=== PATIENT | male | born 1985 | race American Indian/Alaskan Native ===

== ENCOUNTER 2017-04-19 17:07 | Emergency (ER) | payer BC ==
[2017-04-19 19:10] VITALS: BP 121/65
[2017-04-19] MEDS ORDERED: ANCEF IM ONE (20:18)
--- NOTE | 2017-04-19 20:35 | Emergency Department Report ---
ED Laceration HPI - HPI Chief Complaint: Wound/Laceration Stated Complaint: RIGHT HAND FINGER LACERATION Occurred When: Today Severity: mild Tetanus Status: Up to Date Laceration Symptoms: Yes Pain, No Foreign Body Sensation, No Numbness, No Weakness Other History: 31 year old male presents to ED with right 4th digit laceration/ distal amputation @8. patient states he cut his finger on sharp bottle top/cap. patient is stable, neurologically intact and in no acute distress. patient states he had tetanus shot this year. ED Review of Systems ROS: Stated complaint: RIGHT HAND FINGER LACERATION Other details as noted in HPI Constitutional: denies: chills, fever Eyes: denies: eye pain, eye discharge, vision change ENT: denies: ear pain, throat pain Respiratory: denies: cough, shortness of breath, wheezing Cardiovascular: denies: chest pain, palpitations Endocrine: no symptoms reported Gastrointestinal: denies: abdominal pain, nausea, diarrhea Genitourinary: denies: urgency, dysuria Musculoskeletal: denies: back pain, joint swelling Skin: denies: rash, lesions Neurological: denies: headache, weakness, paresthesias Psychiatric: denies: anxiety, depression Hematological/Lymphatic: denies: easy bleeding, easy bruising ED Past Medical Hx - Past Medical History Hx Hypertension: Yes - Social History Smoking Status: Never Smoker Substance Use Type: Alcohol - Medications Home Medications: Home Medications Medication Instructions Recorded Confirmed Last Taken Type Cephalexin [Keflex] 500 mg PO Q8H #21 cap 04/19/17 Unknown Rx Laceration Physical Exam - Exam General: Vital signs noted. No distress. Alert and acting appropriately. patient has distal right 4th digit amputation on lateral side including nail bed. Wound Length (cm): 3 Laceration Location: Upper Extremity (right 4th digit/finger) Laceration Exam: Yes Normal Distal CMS, No Foreign Body, No Exposed Tendon, Vessel, or Nerve, No Tendon Injury ED Course Vital Signs 04/19/17 19:08 Temperature 98.1 F Pulse Rate 56 L Respiratory 18 Rate Blood Pressure 121/65 O2 Sat by Pulse 100 Oximetry ED Medical Decision Making - Radiology Data Radiology results: report reviewed XR right finger normal study. no fracture or dislocation. joint spaces normal. soft tissues are unremarkable. no foreign bodies present. - Medical Decision Making 31 year old male presents to ED with right 4th finger laceration (approx 3cm) at 8am. patient has no acute findings on imaging. patient has mild distal 4th finger amputation. I have consulted Dr. gambino at 9pm and he has recommended antibiotics, xerofoam and to follow up with him in his office on Saturday for evaluation for skin graft. patient is stable, neurologically intact and in no acute distress. bleeding well controlled. Critical care attestation.: If time is entered above; I have spent that time in minutes in the direct care of this critically ill patient, excluding procedure time. ED Disposition Clinical Impression: Fingertip amputation Qualifiers: Encounter type: initial encounter Qualified Code(s): S68.129A - Partial traumatic metacarpophalangeal amputation of unspecified finger, initial encounter Disposition: TO HOME OR SELFCARE Is pt being admited?: No Does the pt Need Aspirin: No Condition: Stable Instructions: Finger Amputation (ED), Finger Laceration (ED) Additional Instructions: Please follow up with Dr. gambino in his office on saturday. Prescriptions: Cephalexin [Keflex] 500 mg PO Q8H #21 cap Referrals: CAITLIN GAMBINO MD [Staff Physician] - 2-3 Days Forms: Work/School Release Form(ED)
[2017-04-19] MEDS ORDERED: NORCO 7.5/325 PO ONE (20:47)
--- NOTE | 2017-04-19 20:55 | XRay Report ---
FINAL REPORT PROCEDURE: Right ring finger. TECHNIQUE: Three views. HISTORY: laceration RIGHT HAND, 4TH DIGIT COMPARISON: No prior studies are available for comparison. FINDINGS: The bones appear intact without fracture or dislocation. The joint spaces appear normal. The soft tissues are unremarkable. There are no radiopaque foreign bodies. IMPRESSION: Normal study.
== END 2017-04-19 22:09 | disposition home or self-care (01) ==
LOC: ED 17:07
DX: S68.124A Partial traumatic metacarpophalangeal amputation of right ring finger, initial encounter (principal); I10 Essential (primary) hypertension; W26.8XXA Contact with other sharp object(s), not elsewhere classified, initial encounter; Y93.89 Activity, other specified; Y92.89 Other specified places as the place of occurrence of the external cause; Y99.8 Other external cause status
CPT/HCPCS: 73140; 96372; 99283; J0690